=== PATIENT | male | born 1970 | race Caucasian/White ===

== ENCOUNTER 2020-01-27 08:15 | Outpatient (REF) | payer OTHER, SELFPAY ==
[2020-01-27 11:42] LABS: Alanine Aminotransferase 35 U/L (0-40); Anion Gap 15 (12-20); Aspartate Amino Transferase 22 U/L (5-37); Blood Urea Nitrogen 21 mg/dL (9-16); Calcium 9.4 mg/dL (8.4-10.2); Carbon Dioxide 26 mmol/L (22-29); Chloride 103 mmol/L (96-108); Cholesterol 119 mg/dL; Estimated Glomerular Filt Rate > 60; Glucose Fasting 126 mg/dL (60-99); HDL Cholesterol 43 mg/dL; LDL Cholesterol Calculated 50 mg/dl; Potassium 4.8 mmol/l (3.3-5.1); Sodium 139 mmol/L (135-145); Triglycerides 134 mg/dL
[2020-01-27 11:45] LABS: Estimated Average Glucose 169 mg/dL; Hemoglobin A1c % 7.5 %
== END 2020-01-27 08:16 | disposition home or self-care (01) ==
LOC: HO.HMGCLDS 08:15
PROVIDERS: PCP Internal Medicine; Visit Provider Internal Medicine
DX: E78.5 Hyperlipidemia, unspecified (principal); E11.65 Type 2 diabetes mellitus with hyperglycemia; E66.01 Morbid (severe) obesity due to excess calories; Z68.35 Body mass index [BMI] 35.0-35.9, adult
CPT/HCPCS: 80048; 80061; 83036; 84450; 84460

== ENCOUNTER 2020-05-01 09:38 | Outpatient (REF) | payer OTHER, SELFPAY ==
[2020-05-01 11:23] LABS: Estimated Average Glucose 180 mg/dL; Hemoglobin A1c % 7.9 %
[2020-05-01 11:45] LABS: Alanine Aminotransferase 47 U/L (0-40); Anion Gap 15 (12-20); Aspartate Amino Transferase 26 U/L (5-37); Blood Urea Nitrogen 25 mg/dL (9-16); Calcium 9.2 mg/dL (8.4-10.2); Carbon Dioxide 25 mmol/L (22-29); Chloride 104 mmol/L (96-108); Cholesterol 113 mg/dL; Estimated Glomerular Filt Rate > 60; Glucose Fasting 134 mg/dL (60-99); HDL Cholesterol 36 mg/dL; LDL Cholesterol Calculated 48 mg/dl; Potassium 4.7 mmol/L (3.3-5.1); Sodium 139 mmol/L (135-145); Triglycerides 149 mg/dL
[2020-05-01 12:07] LABS: Creatinine Urine 68.33 mg/dL; Microalbumin Urine < 5.0 mg/L
== END 2020-05-01 09:39 | disposition home or self-care (01) ==
LOC: HO.HMGCLDS 09:38
PROVIDERS: PCP Internal Medicine; Visit Provider Internal Medicine
DX: E78.1 Pure hyperglyceridemia (principal); E11.65 Type 2 diabetes mellitus with hyperglycemia; I10 Essential (primary) hypertension
CPT/HCPCS: 36415; 80048; 80061; 82043; 83036; 84450; 84460

== ENCOUNTER 2020-08-14 07:29 | Outpatient (REF) | payer OTHER, SELFPAY ==
[2020-08-14 11:42] LABS: Estimated Average Glucose 154 mg/dL
[2020-08-14 12:00] LABS: Creatinine Urine 108.01 mg/dL; Microalbum/Creatinine Ratio Ur 4.6 ug/mg cr
[2020-08-14 12:09] LABS: Alanine Aminotransferase 23 U/L (0-40); Anion Gap 12 (12-20); Aspartate Amino Transferase 17 U/L (5-37); Blood Urea Nitrogen 23 mg/dL (9-16); Calcium 9.2 mg/dL (8.4-10.2); Carbon Dioxide 26 mmol/L (22-29); Chloride 108 mmol/L (96-108); Cholesterol 117 mg/dL; Estimated Glomerular Filt Rate > 60; Glucose Fasting 133 mg/dL (60-99); HDL Cholesterol 44 mg/dL; LDL Cholesterol Calculated 57 mg/dl; Potassium 4.1 mmol/L (3.3-5.1); Sodium 142 mmol/L (135-145); Triglycerides 81 mg/dL
== END 2020-08-14 07:30 | disposition home or self-care (01) ==
LOC: HO.HMGCLDS 07:29
PROVIDERS: PCP Internal Medicine; Visit Provider Internal Medicine
DX: E11.65 Type 2 diabetes mellitus with hyperglycemia (principal); E66.9 Obesity, unspecified; E78.1 Pure hyperglyceridemia; I10 Essential (primary) hypertension
CPT/HCPCS: 36415; 80048; 80061; 82043; 83036; 84450; 84460

== ENCOUNTER → 2020-08-31 14:46 | Outpatient (BNVA) | payer OTHER, SELFPAY | PROVIDERS: PCP Internal Medicine; Referring Provider Internal Medicine; Visit Provider Internal Medicine Cardiovascular Disease | DX: E11.65 Type 2 diabetes mellitus with hyperglycemia (principal); E78.1 Pure hyperglyceridemia; E66.9 Obesity, unspecified; E78.5 Hyperlipidemia, unspecified; G47.33 Obstructive sleep apnea (adult) (pediatric); Z68.35 Body mass index [BMI] 35.0-35.9, adult; Z91.030 Bee allergy status; Z82.49 Family history of ischemic heart disease and other diseases of the circulatory system; Z79.84 Long term (current) use of oral hypoglycemic drugs; Z79.899 Other long term (current) drug therapy | CPT/HCPCS: 93005 ==

== ENCOUNTER 2021-05-14 08:18 | Outpatient (REF) | payer OTHER, SELFPAY ==
[2021-05-14 11:57] LABS: Estimated Average Glucose 183 mg/dL
[2021-05-14 12:05] LABS: Alanine Aminotransferase 38 U/L (0-40); Anion Gap 12 (12-20); Aspartate Amino Transferase 21 U/L (5-37); Blood Urea Nitrogen 18 mg/dL (9-16); Calcium 9.8 mg/dL (8.4-10.2); Carbon Dioxide 27 mmol/L (22-29); Chloride 105 mmol/L (96-108); Cholesterol 134 mg/dL; Estimated Glomerular Filt Rate > 60; Glucose Fasting 147 mg/dL (60-99); HDL Cholesterol 39 mg/dL; LDL Cholesterol Calculated 63 mg/dl; Potassium 4.7 mmol/L (3.3-5.1); Sodium 139 mmol/L (135-145); Triglycerides 161 mg/dL
[2021-05-14 12:25] LABS: Creatinine Urine 50.69 mg/dL; Microalbumin Urine < 5.0 mg/L
== END 2021-05-14 08:19 | disposition home or self-care (01) ==
LOC: HO.HMGCLDS 08:18
PROVIDERS: Visit Provider Internal Medicine
DX: E11.9 Type 2 diabetes mellitus without complications (principal); E78.5 Hyperlipidemia, unspecified; E66.9 Obesity, unspecified; Z82.49 Family history of ischemic heart disease and other diseases of the circulatory system
CPT/HCPCS: 36415; 80048; 80061; 82043; 83036; 84450; 84460

== ENCOUNTER → 2021-08-22 13:51 | Outpatient (BNVA) | payer OTHER, SELFPAY | PROVIDERS: PCP Internal Medicine; Referring Provider Internal Medicine; Visit Provider Nurse Practitioner Family | DX: E11.9 Type 2 diabetes mellitus without complications (principal); E66.9 Obesity, unspecified; Z82.49 Family history of ischemic heart disease and other diseases of the circulatory system; Z68.35 Body mass index [BMI] 35.0-35.9, adult | CPT/HCPCS: 93005 ==

== ENCOUNTER 2021-08-23 09:22 | Outpatient (REF) | payer OTHER, SELFPAY ==
[2021-08-23 11:39] LABS: Estimated Average Glucose 169 mg/dL; Hemoglobin A1c % 7.5 %
[2021-08-23 12:03] LABS: Alanine Aminotransferase 36 U/L (0-40); Aspartate Amino Transferase 20 U/L (5-37); Cholesterol 117 mg/dL; HDL Cholesterol 39 mg/dL; LDL Cholesterol Calculated 51 mg/dl; Triglycerides 138 mg/dL
== END 2021-08-23 09:23 | disposition home or self-care (01) ==
LOC: HO.HMGCLDS 09:22
PROVIDERS: PCP Internal Medicine; Visit Provider Internal Medicine
DX: E11.9 Type 2 diabetes mellitus without complications (principal); E66.9 Obesity, unspecified; E78.1 Pure hyperglyceridemia; Z82.49 Family history of ischemic heart disease and other diseases of the circulatory system
CPT/HCPCS: 36415; 80061; 83036; 84450; 84460

== ENCOUNTER 2022-08-28 09:59 | Outpatient (AMB) | payer OTHER, SELFPAY ==
--- NOTE | 2022-08-28 10:02 | A.OFFVIS_ITS ---
Intake Vital Signs 08/28/22 10:03 Height 5 ft 8 in Weight 234 lb 9.149 oz BMI 35.7 BP 118/74 Blood Pressure Location Lt brachial Position Sitting Pulse 80 Pulse Source Monitor Intake Visit Reasons: 1 yr f/up per dc Intake Note: 1 year follow up with EKG. 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 Accompanied by: Self / Same As Patient Allergies bee sting Allergy (Unknown, Uncoded 08/28/22 10:04) Swelling Medication List - Last Reconciled 08/28/22 by Hayden Nichols MD aspirin (Adult Low Dose Aspirin) 81 mg PO DAILY atorvastatin 20 mg PO DAILY blood sugar diagnostic As directed blood sugar diagnostic (FreeStyle Lite Strips) Check fasting blood sugar twice a day before meals dulaglutide (Trulicity) 3 mg subcut QWEEK glipizide 10 mg PO BID 90 days metformin 1,000 mg PO BID 90 days omega-3 fatty acids (Fish Oil Concentrate) 1,000 mg PO DAILY HPI HPI Comments History of Present Illness Details 52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 He has strong family history of coronary artery disease. He is active and has no symptoms. He has been on atorvastatin and has been tolerating it well. He takes baby aspirin. Physically he is active and exercises regularly without any symptoms. He had coronary calcium score which was done through primary care physician. His calcium score was 3. He continues to be asymptomatic on follow-up. [facility] Medical History Diabetes mellitus with hyperglycemia, without long-term current use of insulin Hypertriglyceridemia Obesity LESLIE (obstructive sleep apnea) Type 2 diabetes mellitus without complication, without long-term current use of insulin Surgical History (Updated 08/28/22 @ 10:05 by JARON Byrnes) History of left knee surgery Status post LASIK surgery Family History Father Diabetes mellitus Myocardial infarction HTN (hypertension) CVD (cardiovascular disease) Mother Diabetes mellitus CVD (cardiovascular disease) Myocardial infarction Brother Colon polyp Diabetes mellitus, Onset Age: 35 CVD (cardiovascular disease) Sister Myocardial infarction Sister No problems noted. Sister No problems noted. Sister No problems noted. Sister No problems noted. Son No problems noted. Daughter No problems noted. Social History Housing: House Alcohol intake: current Alcohol intake frequency: holidays/special occasions only Patient Tobacco Use Status: Never used Tobacco e-Cigarette/Vaping Use: Never Used Second Hand Smoke Exposure: No service: No Current occupational status: employed Cognitive needs: No Hearing needs: No Vision needs: No Review of Systems Const Denies weakness ENT Denies dizziness Card Denies chest pain, Denies chest pain with activity, Denies syncope, Denies rapid heart rate, Denies pedal edema, Denies edema, Denies leg edema, Denies lightheadedness, Denies palpitations, Denies dyspnea, Denies dyspnea on exertion and Denies orthopnea Resp Denies cough, Denies dyspnea and Denies dyspnea on exertion GI Denies hematochezia and Denies change in stool character Musc Denies abnormal gait, Denies muscle cramps, Denies muscle weakness, Denies numbness, Denies radiating pain into limb and Denies tingling Neuro Denies abnormal gait, Denies dizziness, Denies syncope, Denies numbness, Denies tingling and Denies weakness Endo Denies palpitations Physical Exam Vital Signs: Last Vital Signs Pulse 80 08/28/22 10:03 BP 118/74 08/28/22 10:03 BMI result Body Mass Index 35.7 GENERAL APPEARANCE: in no acute distress, pleasant. NECK: no carotid bruit, no jugular venous distention. SKIN: no suspicious lesions, warm and dry. HEART: no murmurs, regular rate and rhythm. LUNGS: clear to auscultation bilaterally. ABDOMEN: soft, nontender. EXTREMITIES: no edema. PERIPHERAL PULSES: equal. NEUROLOGIC: No gross deficits, AAO X 3 Office Procedures EKG Details: Sinus rhythm 80 beats per minute, EKG, QTC 419 milliseconds. [id number], Complete Assessment & Plan Assessment & Plan (1) Hyperlipidemia: Code(s): E78.5 - Hyperlipidemia, unspecified (2) Family history of coronary artery disease: Code(s): Z82.49 - Family history of ischemic heart disease and other diseases of the circulatory system Plan Pleasant 52 gentleman who is here for follow-up. He has background history of hyperlipidemia and strong family history of coronary artery disease. He underwent coronary calcium score which showed a calcium score of 3. This is quite low for someone his age but does point towards underlying atherosclerotic process. He should continue same medications for now. If he develops any exertional symptoms with end-stage the pursue ischemic evaluation. Right now he is doing quite well with medications and his risk factors are quite well optimized. Thank you for allowing me to participate in the care of your patient. Please feel free to contact me if you have any questions. Coding Level of Care Code Est Pt Level 4 (54269) Diagnoses Hyperlipidemia E78.5 Family history of coronary artery disease Z82.49 CPT Codes EKG - CPT: 93105-[id number], Complete ([id number])
[2022-08-28 10:03] VITALS: BP 118/74; PULSE 80; BMI 35.7
== END 2022-08-28 10:24 | disposition home or self-care (01) ==
PROVIDERS: Visit Provider Internal Medicine Cardiovascular Disease
DX: E78.5 Hyperlipidemia, unspecified (principal); Z82.49 Family history of ischemic heart disease and other diseases of the circulatory system
CPT/HCPCS: 93010; 99214

== ENCOUNTER → 2022-08-28 09:59 | Outpatient (BNVA) | payer OTHER, SELFPAY | PROVIDERS: Visit Provider Internal Medicine Cardiovascular Disease | DX: E78.5 Hyperlipidemia, unspecified (principal); Z79.84 Long term (current) use of oral hypoglycemic drugs; Z79.82 Long term (current) use of aspirin; Z82.49 Family history of ischemic heart disease and other diseases of the circulatory system; Z79.899 Other long term (current) drug therapy | CPT/HCPCS: 93005 ==

== ENCOUNTER 2023-11-10 11:17 | Outpatient (AMB) | payer OTHER, SELFPAY ==
[2023-11-10 11:33] VITALS: BP 130/62; PULSE 72; BMI 35.2
--- NOTE | 2023-11-10 11:33 | MHC.OFFVIS ---
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 by: Self / Same As Patient Allergies bee sting Allergy (Unknown, Uncoded 08/28/22 10:04) Swelling Medication List - Last Reconciled 11/10/23 by Hayden Nichols MD aspirin (Adult Low Dose Aspirin) 81 mg PO DAILY atorvastatin 20 mg PO DAILY blood sugar diagnostic As directed blood sugar diagnostic (FreeStyle Lite Strips) Check fasting blood sugar twice a day before meals glipizide 10 mg PO BID 90 days metformin 1,000 mg PO BID 90 days omega-3 fatty acids (Fish Oil Concentrate) 1,000 mg PO DAILY semaglutide (Ozempic) 1 mg subcut QWEEK HPI Comments Details: 53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 He has strong family history of coronary artery disease. He is active and has no symptoms. He has been on atorvastatin and has been tolerating it well. He takes baby aspirin. Physically he is active and exercises regularly without any symptoms. He had coronary calcium score which was done through primary care physician. His calcium score was 3. He continues to be asymptomatic on follow-up. 11/10/23: He is here for follow-up. He has been taking medications regularly. He has been started on Ozempic because of rising hemoglobin A1c. Continues to be active without any exertional symptoms. [facility] Medical History Type 2 diabetes mellitus without complication, without long-term current use of insulin LESLIE (obstructive sleep apnea) Obesity Hypertriglyceridemia Diabetes mellitus with hyperglycemia, without long-term current use of insulin Surgical History History of left knee surgery Status post LASIK surgery Family History Father Diabetes mellitus Myocardial infarction HTN (hypertension) CVD (cardiovascular disease) Mother Diabetes mellitus CVD (cardiovascular disease) Myocardial infarction Brother Colon polyp Diabetes mellitus, Onset Age: 35 CVD (cardiovascular disease) Sister Myocardial infarction Sister No problems noted. Sister No problems noted. Sister No problems noted. Sister No problems noted. Son No problems noted. Daughter No problems noted. Social History Housing: House Alcohol intake: current Alcohol intake frequency: holidays/special occasions only Patient Tobacco Use Status: Never used Tobacco e-Cigarette/Vaping Use: Never Used Second Hand Smoke Exposure: No service: No Current occupational status: employed Cognitive needs: No Hearing needs: No Vision needs: No Review of Systems Const Denies chills, Denies fatigue, Denies fever(s), Denies frequent falls, Denies weakness, Denies weight gain and Denies weight loss ENT Denies dizziness Card Denies chest pain, Denies leg edema, Denies lightheadedness, Denies palpitations, Denies dyspnea and Denies dyspnea on exertion Resp Denies cough, Denies dyspnea and Denies dyspnea on exertion GI Denies hematochezia Musc Denies abnormal gait, Denies muscle weakness, Denies numbness, Denies radiating pain into limb and Denies tingling Neuro Denies abnormal gait, Denies dizziness, Denies frequent falls, Denies numbness, Denies tingling and Denies weakness Endo Denies fatigue and Denies palpitations Physical Exam Vital Signs: Last Vital Signs Pulse 72 11/10/23 11:33 BP 130/62 11/10/23 11:33 BMI result Body Mass Index 35.2 GENERAL APPEARANCE: in no acute distress, pleasant. NECK: no carotid bruit, no jugular venous distention. SKIN: no suspicious lesions, warm and dry. HEART: no murmurs, regular rate and rhythm. LUNGS: clear to auscultation bilaterally. ABDOMEN: soft, nontender. EXTREMITIES: no edema. PERIPHERAL PULSES: equal. NEUROLOGIC: No gross deficits, AAO X 3 Office Procedures EKG Details: NSR 72/min, normal ECG, QTc 413 msec. [id number], Complete Assessment & Plan Assessment & Plan (1) Hyperlipidemia: Code(s): E78.5 - Hyperlipidemia, unspecified Category: Medical (2) Family history of coronary artery disease: Code(s): Z82.49 - Family history of ischemic heart disease and other diseases of the circulatory system Category: Medical Plan Pleasant 53 year gentleman who is here for follow-up. He has background history of hyperlipidemia and family history of coronary artery disease. He underwent coronary calcium score which was 3 and he has been on atorvastatin 20 mg daily. Previously his cholesterol numbers were good. He should have once a year fasting lipid panel. Overall clinically stable and has no exertional symptoms. He will see us back in 1 year. Thank you for allowing me to participate in the care of your patient. Please feel free to contact me if you have any questions. Coding Level of Care Code Est Pt Level 4 (40826) Diagnoses Hyperlipidemia E78.5 Family history of coronary artery disease Z82.49 CPT Codes EKG - CPT: 89132-[id number], Complete ([id number])
== END 2023-11-10 11:52 | disposition home or self-care (01) ==
PROVIDERS: PCP Internal Medicine; Visit Provider Internal Medicine Cardiovascular Disease
DX: E78.5 Hyperlipidemia, unspecified (principal); Z82.49 Family history of ischemic heart disease and other diseases of the circulatory system
CPT/HCPCS: 93010; 99214

== ENCOUNTER → 2023-11-10 11:17 | Outpatient (BNVA) | payer OTHER, SELFPAY | PROVIDERS: PCP Internal Medicine; Visit Provider Internal Medicine Cardiovascular Disease | DX: E78.5 Hyperlipidemia, unspecified (principal); Z82.49 Family history of ischemic heart disease and other diseases of the circulatory system; Z79.899 Other long term (current) drug therapy | CPT/HCPCS: 93005 ==

== ENCOUNTER 2024-12-24 09:18 | Outpatient (AMB) | payer OTHER, SELFPAY ==
--- NOTE | 2024-12-24 09:31 | MHC.OFFVIS ---
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 Accompanied by: Self / Same As Patient Allergies bee sting Allergy (Unknown, Uncoded 08/28/22 10:04) Swelling Medication List - Last Reconciled 12/24/24 by PATTIE Schmidt aspirin (Adult Low Dose Aspirin) 81 mg PO DAILY atorvastatin 20 mg PO DAILY blood sugar diagnostic As directed blood sugar diagnostic (FreeStyle Lite Strips) Check fasting blood sugar twice a day before meals metformin 1,000 mg PO BID 90 days omega-3 fatty acids (Fish Oil Concentrate) 1,000 mg PO DAILY tirzepatide (Mounjaro) 10 mg subcut QWEEK HPI HPI 1 year follow up: Details: Alberto 54-year-old male with past medical history of obesity, hyperlipidemia, diabetes, sleep apnea, family history of CAD who presents for follow-up. Last prior visit was 11/10/2023. Today he reports that he has been feeling well over the last year. He has had no changes to his health. No chest discomfort at rest or with activity. No shortness of breath, PND, orthopnea or edema. No heart palpitations, lightheadedness, presyncope, syncope. 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 He is also able to do cardio exercises without concerning symptoms. He is compliant with his medications. He believes he had blood work in the last year by his [facility] PCP. [facility] Medical History Type 2 diabetes mellitus without complication, without long-term current use of insulin LESLIE (obstructive sleep apnea) Obesity Hypertriglyceridemia Diabetes mellitus with hyperglycemia, without long-term current use of insulin Surgical History History of left knee surgery Status post LASIK surgery Family History Father Diabetes mellitus Myocardial infarction HTN (hypertension) CVD (cardiovascular disease) Mother Diabetes mellitus CVD (cardiovascular disease) Myocardial infarction Brother Colon polyp Diabetes mellitus, Onset Age: 35 CVD (cardiovascular disease) Sister Myocardial infarction Sister No problems noted. Sister No problems noted. Sister No problems noted. Sister No problems noted. Son No problems noted. Daughter No problems noted. Social History Housing: House Alcohol intake: current Alcohol intake frequency: holidays/special occasions only Patient Tobacco Use Status: Never used Tobacco e-Cigarette/Vaping Use: Never Used Second Hand Smoke Exposure: No service: No Current occupational status: employed Cognitive needs: No Hearing needs: No Vision needs: No Review of Systems Const All systems reviewed & are unremarkable except as noted in HPI and below Denies chills, Denies fatigue, Denies fever(s), Denies frequent falls, Denies weakness, Denies weight gain and Denies weight loss ENT Denies dizziness Card Denies chest pain, Denies leg edema, Denies lightheadedness, Denies palpitations, Denies dyspnea and Denies dyspnea on exertion Resp Denies cough, Denies dyspnea and Denies dyspnea on exertion GI Denies hematochezia Musc Denies abnormal gait, Denies muscle weakness, Denies numbness, Denies radiating pain into limb and Denies tingling Neuro Denies abnormal gait, Denies dizziness, Denies frequent falls, Denies numbness, Denies tingling and Denies weakness Endo Denies fatigue and Denies palpitations Physical Exam Vital Signs: Last Vital Signs Pulse 75 12/24/24 09:33 BP 110/60 12/24/24 09:33 BMI result Body Mass Index 33.7 Const General: cooperative, healthy appearing, comfortable and no acute distress Orientation/consciousness: patient oriented x3 Neck Neck: Yes normal visual inspection Resp Effort & Inspection: normal respiratory effort Auscultation: clear to auscultation bilaterally, no crackles, no rales, no rhonchi and no wheezes Cardio Rate: regular rate Rhythm: regular rhythm Heart sounds: S1 normal heart sound present, S2 normal heart sound present, no gallops, no murmurs and no rubs Neuro General: patient oriented x3 Extrem General: Yes normal to inspection, No no pedal edema and No calf tenderness Psych Appearance: grossly normal Mental Status: mental status grossly normal Speech and movement: Normal speech and movement present Office Procedures EKG Details: Today, read by me normal sinus rhythm, right axis, rate 75, Qtc 415ms [id number], Complete Assessment & Plan Assessment & Plan (1) Hypertriglyceridemia: Code(s): E78.1 - Pure hyperglyceridemia Category: Medical Plan: [place] triglyceride less than 150 and LDL less than 70 in diabetic. History of hyperlipidemia with hypertriglyceridemia. He is on [place] 3 and atorvastatin. No recent lipids for review. Will reach out to [facility] to obtain most recent labs. The importance of good cholesterol control reviewed with him. (2) Hyperlipidemia: Code(s): E78.5 - Hyperlipidemia, unspecified Category: Medical Plan: As above (3) Type 2 diabetes mellitus without complication, without long-term current use of insulin: Code(s): E11.9 - Type 2 diabetes mellitus without complications Category: Medical Plan: Hemoglobin A1c goal less than 7. Followed by PCP. (4) Obesity: Code(s): E66.9 - Obesity, unspecified Category: Medical Plan: He is actively working weight loss. On GLP 1, tirzepatide. (5) Family history of coronary artery disease: Code(s): Z82.49 - Family history of ischemic heart disease and other diseases of the circulatory system Category: Medical Plan: Family history of coronary artery disease in his father and brother. He does have cardiac risk factors but no known CAD. Coronary calcium 3, in past. Continue with risk factor modification. Plan I discussed with the patient the importance of continuing his cholesterol medication and the need for regular monitoring of cholesterol and liver function tests. We reviewed the coronary calcium score, which is reassuringly low, and I advised him to be vigilant for any new symptoms such as chest pain or shortness of breath during exertion. Follow-up is planned for one year, with instructions to return sooner if symptoms develop. Patient Instructions: - Continue taking cholesterol medication as prescribed. - Schedule regular cholesterol and liver function tests. - Monitor for any new symptoms such as chest pain or shortness of breath and report them immediately. - Follow up in one year or sooner if symptoms develop. Patient was informed and verbally consented to the use of an ambient scribe for clinic note documentation during this visit. Visit time spent on chart review, interview, assessment, orders, documentation. Coding Level of Care Code Est Pt Level 4 (39897) Complex EM visit Add On G2211 Diagnoses Hypertriglyceridemia E78.1 Hyperlipidemia E78.5 Type 2 diabetes mellitus without complication, without long-term current use of insulin E11.9 Obesity E66.9 Family history of coronary artery disease Z82.49 CPT Codes EKG - CPT: 17189-[id number], Complete ([id number]) Time Spent (min) 26
[2024-12-24 09:33] VITALS: BP 110/60; PULSE 75; BMI 33.7
--- OUTSIDE RECORDS SUMMARY | 2024-12-24 10:29 | XMS_ITS | Clinical Summary ---
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 Name Role Phone Suyapa Lora MD Primary Care Provider + [phone] Social History Tobacco Use Types Packs/Day Years Used Date Smoking Tobacco: Never Assessed Sex and Gender Information Value Date Recorded Sex Assigned at Male 06/01/2024 3:52 PM EDT Legal Sex Male 11:37 AM EDT Gender Identity Male 06/01/2024 3:52 PM EDT Sexual Orientation Straight 06/01/2024 4: 21 PM EDT Plan of Treatment Health Maintenance Due Date Last Done Comments Colorectal Cancer Screening: Colonoscopy 1971 Diabetes: Annual GFR (Glomerular Filtration Rate) 1971 Diabetes: Annual Foot Exam 08/17/1981 Diabetes: Annual Retina Eye Exam 08/17/1981 Hepatitis B Vaccines (1 of 3 - 19+ 3-dose series) 08/17/1990 Pneumococcal Vaccine: 50+ Years (1 of 1 - PCV) 08/17/2021 Zoster Vaccines (1 of 2) 08/17/2021 Depression Screening 02/18/2024 Cholesterol Screening (Lipid Panel) 05/26/2024 HIV Screening 05/26/2024 Hepatitis C Screening 05/26/2024 Social Influencers of Health Screening 05/26/2024 Diabetes: Annual Urine Albumin-Creatinine Ratio (uACR) 06/11/2024 Diabetes: Blood Sugar Control Test (HGBA1C) 06/11/2024 COVID-19 Vaccine ( season) 2024 04/05/2020, 03/07/2020 Influenza Vaccine (#1) 2024 9, 12/25/2017, 12/06/2016, Additional history exists DTaP,Tdap,and Td Vaccines (2 - Td or Tdap) 07/04/2025 07/05/2015 RSV Immunization Adult Patients (1 - 1-dose 75+ series) 08/17/2046 HIB Vaccines Aged Out No longer eligi ble based on patient's age to complete this topic HPV Vaccines Aged Out No longer eligi ble based on patient's age to complete this topic Hepatitis A Vaccines Aged Out No long er eligible based on patient's age to complete this topic IPV Vaccines Aged Out No longer eligi ble based on patient's age to complete this topic MMR Vaccines Aged Out No longer eligi ble based on patient's age to complete this topic Meningococcal ACWY Vaccine Aged Out N o longer eligible based on patient's age to complete this topic Meningococcal B Vaccine Aged Out No l onger eligible based on patient's age to complete this topic RSV Immunization Patients Under 20 months Aged Out No longer eligible based on patient's age to complete this topic Varicella Vaccines Aged Out No longer eligible based on patient's age to complete this topic Insurance [facility] Care Teams Sludge Control Operator Relationship Specialty Start Date End Date Suyapa Lora MD [address] [place] [id number] PCP - General Internal Medicine 05/26/24
== END 2024-12-24 10:05 | disposition home or self-care (01) ==
LOC: HO.HCS 09:18
PROVIDERS: PCP Internal Medicine; Visit Provider Nurse Practitioner Family
DX: E78.1 Pure hyperglyceridemia (principal); E78.5 Hyperlipidemia, unspecified; E11.9 Type 2 diabetes mellitus without complications; E66.9 Obesity, unspecified; Z82.49 Family history of ischemic heart disease and other diseases of the circulatory system
CPT/HCPCS: 93010; 99214; G2211

== ENCOUNTER → 2024-12-24 09:18 | Outpatient (BNVA) | payer OTHER, SELFPAY | PROVIDERS: PCP Internal Medicine; Visit Provider Nurse Practitioner Family | DX: E66.9 Obesity, unspecified (principal); Z68.33 Body mass index [BMI] 33.0-33.9, adult; E78.5 Hyperlipidemia, unspecified; E78.1 Pure hyperglyceridemia; E11.65 Type 2 diabetes mellitus with hyperglycemia; G47.33 Obstructive sleep apnea (adult) (pediatric); Z82.49 Family history of ischemic heart disease and other diseases of the circulatory system | CPT/HCPCS: 93005 ==